=== PATIENT | female | born 1945 | race Native Hawaiian/Other Pacific Islander ===

== ENCOUNTER 2018-03-01 17:25 | Emergency (ER) | payer OTHER ==
[~2018-03-01] VITALS: Ht 157.5 cm; Wt 78.9 kg
[2018-03-01 18:04] LABS: PLATELET COUNT 213 K/uL (152-353)
[2018-03-01 18:40] VITALS: BP 146/59; TEMP 97.8
[2018-03-01] MEDS ORDERED: AMINOFEN500 MG PO (20:43)
[2018-03-01] MEDS ORDERED: FLUTMIS2 INH (20:44)
[2018-03-01] MEDS ORDERED: ALLO300T23 PO (20:45)
[2018-03-01] MEDS ORDERED: NEURONTIN 100M100 MG PO (20:49)
[2018-03-01] MEDS ORDERED: HYDROXYZ HCL50 MG PO (20:52)
[2018-03-01] MEDS ORDERED: METO50TA27 PO (20:54)
[2018-03-01] MEDS ORDERED: TRIA0.1O13 TOP (20:58)
[2018-03-01] MEDS ORDERED: VENTOLIN HFA INH (21:02)
[2018-03-16] MEDS ORDERED: OLANZAPINE10 MG PO (10:26)
[2018-03-16] MEDS ORDERED: RISP50IN IM (10:26)
[2018-03-16] MEDS ORDERED: AMLODIPINE BESYLATE PO (10:26)
== END 2018-03-01 18:40 | disposition other institution (70) ==
LOC: ED 17:25
DX: F20.0 Paranoid schizophrenia (principal); Z04.6 Encounter for general psychiatric examination, requested by authority
CPT/HCPCS: 80053; 81000; 85027; 93005; 99285